=== PATIENT | female | born 1935 | race American Indian/Alaskan Native ===

== ENCOUNTER 2017-12-14 14:29 | Emergency (ER) | payer MEDICARE ==
[2017-12-14 14:44] VITALS: RESP 18; TEMP 98.7; BMI 26.6
[2017-12-14] MEDS ORDERED: Morphine 4 mg/ml ISec ONE (15:08)
[2017-12-14] MEDS ORDERED: Alum-Mag Hydrox-Simethicone Susp (30 mL) PO STA (15:27)
[2017-12-14] MEDS ORDERED: Atrop/Hyosc/Scopal/PB Elixir (120 ml) PO STA (15:27)
--- NOTE | 2017-12-14 15:33 | ED PDOC ---
Arrival/HPI - General Chief Complaint: Weakness/Neurological Deficit Time Seen by Provider: 12/14/17 14:39 Historian: Patient - History of Present Illness Narrative History of Present Illness (Text): 12/14/17 15:24 A 82 year old female, whose past medical history includes hypertension, hyperlipidemia, and breast cancer w/ mastectomy, presents to the emergency department complaining of ongoing burning sensation to mouth since yesterday at 07:00. Patient reports sensation radiates into abdomen, and fingertips and toes. Patient denies any nausea, vomiting, chest pain, suicidal/homicidal ideation, auditory/visual hallucinations, or any other complaints at this time. PMD: Dr. Benítez Time/Duration: 24 hours (since 07:00 yesterday) Symptom Onset: Sudden Symptom Course: Unchanged Past Medical History - Provider Review Nursing Documentation Reviewed: Yes - Infectious Disease Hx of Infectious Diseases: None - Cardiac Hx Cardiac Disorders: Yes Hx Hypertension: Yes - Pulmonary Hx Respiratory Disorders: No - Neurological Hx Neurological Disorder: No - HEENT Hx HEENT Disorder: Yes Other/Comment: wears reading glasses,glasses at home. - Renal Hx Renal Disorder: No - Endocrine/Metabolic Hx Endocrine Disorders: Yes Hx Diabetes Mellitus Type 2: Yes - Hematological/Oncological Hx Blood Disorders: Yes Hx Anemia: Yes - Integumentary Hx Dermatological Disorder: No - Musculoskeletal/Rheumatological Hx Musculoskeletal Disorders: Yes Hx Arthritis: Yes - Gastrointestinal Hx Gastrointestinal Disorders: Yes Hx Gastroesophageal Reflux: Yes - Genitourinary/Gynecological Hx Genitourinary Disorders: No - Psychiatric Hx Psychophysiologic Disorder: Yes Hx Anxiety: Yes Hx Depression: Yes Hx Substance Use: No - Surgical History Hx Breast Biopsy: Yes Hx Cardiac Catheterization: Yes Hx Mastectomy: Yes (L PARTIAL AND RIGHT COMPLETE MASTECTOMY) Hx Orthopedic Surgery: Yes (Back surgery) Other/Comment: R arm/shoulder surgery - Anesthesia Hx Anesthesia: Yes Hx Anesthesia Reactions: No Hx Malignant Hyperthermia: No - Suicidal Assessment Feels Threatened In Home Enviroment: No Family/Social History - Physician Review Nursing Documentation Reviewed: Yes Family/Social History: No Known Family HX Smoking Status: Former Smoker Hx Alcohol Use: No Hx Substance Use: No Allergies/Home Meds Allergies/Adverse Reactions: Allergies asparagus Allergy (Verified 04/19/16 12:16) RASH atorvastatin Allergy (Verified 04/19/16 12:16) unknown Home Medications: Home Meds Medication Instructions Recorded Confirmed Diovan 80 mg PO DAILY 10/24/13 06/17/16 Xanax 0.5 mg PO BID PRN 10/24/13 08/26/15 Aspirin [Ecotrin] 81 mg PO DAILY 08/22/15 06/17/16 Bisoprolol [Zebeta] 5 mg PO DAILY 08/22/15 06/17/16 Rosuvastatin Calcium [Crestor] 10 mg PO HS 08/26/15 06/17/16 Esomeprazole Magnesium [Nexium] 40 mg PO DAILY 06/17/16 06/17/16 Levocetirizine Dihydrochloride 5 mg PO DAILY 06/17/16 06/17/16 [Xyzal] Meloxicam [Mobic] 15 mg PO DAILY 06/17/16 06/17/16 Metformin HCl [Glucophage] 500 mg PO DAILY 06/17/16 06/17/16 amLODIPine [Norvasc] 5 mg PO DAILY 06/17/16 06/17/16 traZODone [Desyrel] 100 mg PO HS 06/17/16 06/17/16 Review of Systems - Physician Review All systems were reviewed & negative as marked: Yes - Review of Systems Constitutional: absent: Fevers, Night Sweats Respiratory: absent: SOB, Cough Cardiovascular: absent: Chest Pain Gastrointestinal: absent: Nausea, Vomiting Psychiatric: absent: Suicidal Ideation (and no homicidal ideation), Other (no auditory/visual hallucinations) Physical Exam Vital Signs Reviewed: Yes Vital Signs Temp Pulse Resp BP Pulse Ox 12/14/17 18:50 98.7 F 59 L 18 170/69 H 96 12/14/17 17:53 54 L 199/85 H 12/14/17 17:44 98.7 F 59 L 18 170/69 H 96 12/14/17 14:43 98.7 F 61 18 186/86 H 95 Temperature: Afebrile Blood Pressure: Hypertensive Pulse: Regular Respiratory Rate: Normal Appearance: Positive for: Well-Appearing, Non-Toxic, Comfortable Pain Distress: None Mental Status: Positive for: Alert and Oriented X 3 - Systems Exam Head: Present: Atraumatic, Normocephalic Pupils: Present: PERRL Extroacular Muscles: Present: EOMI Conjunctiva: Present: Normal Mouth: Present: Moist Mucous Membranes Neck: Present: Normal Range of Motion Respiratory/Chest: Present: Clear to Auscultation, Good Air Exchange. No: Respiratory Distress, Accessory Muscle Use Cardiovascular: Present: Regular Rate and Rhythm, Normal S1, S2. No: Murmurs Abdomen: No: Tenderness, Distention, Peritoneal Signs Back: Present: Normal Inspection Upper Extremity: Present: Normal Inspection. No: Cyanosis, Edema Lower Extremity: Present: Normal Inspection. No: Edema Neurological: Present: GCS=15, CN II-XII Intact, Speech Normal Skin: Present: Warm, Dry, Normal Color. No: Rashes Psychiatric: Present: Alert, Oriented x 3, Normal Insight, Normal Concentration Medical Decision Making ED Course and Treatment: 12/14/17 15:28 Impression: 82 year old female with burning sensation to mouth radiating to abdomen and into fingertips and toes. No acute findings to physical examination. Differential Diagnosis included but are not limited to: Anxiety; Gastritis Plan: -- EKG -- Labs -- Maalox Plus 30 ml -- Elixir -- Pepcid -- Lidocaine 2% Viscous -- Reassess and disposition Prior Visits: Notes and results from previous visits were reviewed. Patient was last seen in the emergency department on 09/19/2017 for Xanax refill. Patient was shown to have had an extensive Xanax and Percocet record with Dr. Benítez and 3 other providers. Patient was discharge home. Progress Notes: 12/14/17 16:23 Sinus archana at 55bpm with premature superventricular complexes, with LVH, Q waves inf leads, no change from 09/19/17 Patient's blood pressure improved after clonidine. She will make sure to take her medications at home. Patient's labs reviewed and normal. Patient felt much better after medications. She will follow up with her primary care doctor. She was advised to return to the ED if symptoms worsen or any other concern. - Lab Interpretations Lab Results: 12/14/17 17:17 12/14/17 16:45 Lab Results 12/14/17 17:17: WBC 7.8, RBC 3.89, Hgb 10.8 L, Hct 32.7 L, MCV 84.1, MCH 27.8, MCHC 33.0, RDW 14.2, Plt Count 263, MPV 9.7, Gran % 56.6, Lymph % (Auto) 32.0, Kemper % (Auto) 8.1 H, Eos % (Auto) 3.2, Baso % (Auto) 0.1, Gran # 4.42, Lymph # ( Auto) 2.5, Kemper # (Auto) 0.6, Eos # (Auto) 0.3, Baso # (Auto) 0.01 12/14/17 16:45: Sodium 144, Potassium 3.6, Chloride 107, Carbon Dioxide 28, Anion Gap 13, BUN 10, Creatinine 0.5 L, Est GFR ( Amer) > 60, Est GFR ( Non-Af Amer) > 60, Random Glucose 116 H, Calcium 9.2, Magnesium 1.9, Total Bilirubin 0.8, AST 19, ALT 19, Alkaline Phosphatase 54, Total Protein 7.1, Albumin 4.0, Globulin 3.0, Albumin/Globulin Ratio 1.3 I have reviewed the lab results: Yes - Medication Orders Current Medication Orders: Discontinued Medications Al Hydrox/Mg Hydrox/Simethicone (Maalox Plus 30 Ml) 30 ml PO STAT STA Stop: 12/14/17 15:28 Last Admin: 12/14/17 16:26 Dose: 30 ml Belladonna/Phenobarbital ( Elixir) 10 ml PO STAT STA Stop: 12/14/17 15:28 Last Admin: 12/14/17 16:24 Dose: 10 ml Clonidine HCl (Catapres) 0.2 mg PO STAT STA Stop: 12/14/17 17:42 Last Admin: 12/14/17 17:53 Dose: 0.2 mg MAR Pulse and Blood Pressure Document 12/14/17 17:53 OCS (Rec: 12/14/17 17:53 OCS [id number]) Pulse Pulse Rate (60-90) 54 Blood Pressure Blood Pressure (100/60-150/90) 199/85 Famotidine (Pepcid) 20 mg IVP STAT STA Stop: 12/14/17 15:28 Last Admin: 12/14/17 16:40 Dose: IVP Administration Document 12/14/17 16:40 OCS (Rec: 12/14/17 16:40 OCS [id number]) Charges for Administration # of IVP Administrations 1 Famotidine (Pepcid) 20 mg PO STAT STA Stop: 12/14/17 16:40 Last Admin: 12/14/17 17:28 Dose: 20 mg Lidocaine HCl (Lidocaine 2% Viscous) 10 ml MM STAT STA Stop: 12/14/17 15:28 Last Admin: 12/14/17 16:26 Dose: 10 ml - Scribe Statement The provider has reviewed the documentation as recorded by the Vaishali Epstein Provider Scribe Attestation: All medical record entries made by the Scribe were at my direction and personally dictated by me. I have reviewed the chart and agree that the record accurately reflects my personal performance of the history, physical exam, medical decision making, and the department course for this patient. I have also personally directed, reviewed, and agree with the discharge instructions and disposition. Disposition/Present on Arrival - Present on Arrival Any Indicators Present on Arrival: Yes History of DVT/PE: No History of Uncontrolled Diabetes: Yes Urinary Catheter: No History of Decub. Ulcer: No History Surgical Site Infection Following: None - Disposition Have Diagnosis and Disposition been Completed?: Yes Diagnosis: Medication reaction, Hypertension Disposition: HOME/ ROUTINE Disposition Time: 18:50 Patient Plan: Discharge Condition: IMPROVED Discharge Instructions (ExitCare): High Blood Pressure in Adults, Adverse Drug Reactions, Adult Additional Instructions: COLLEEN WARNER, thank you for letting us take care of you today. Your provider was Arnie Hamilton DO and you were treated for Medication Reaction, Hypertension. The emergency medical care you received today was directed at your acute symptoms. If you were prescribed any medication, please fill it and take as directed. It may take several days for your symptoms to resolve. Return to the Emergency Department if your symptoms worsen, do not improve, or if you have any other problems. Please contact your doctor or call one of the physicians/clinics you have been referred to that are listed on the Patient Visit Information form that is included in your discharge packet. Bring any paperwork you were given at discharge with you along with any medications you are taking to your follow up visit. Our treatment cannot replace ongoing medical care by a primary care provider outside of the emergency department. Thank you for allowing the [facility] team to be part of your care today. If you had an X-Ray or CT scan: A Radiologist will review the ED reading if any change in treatment is needed we will contact you. If you had a blood, urine, or wound culture: It will take several days for the results, if any change in treatment is needed we will contact you. If you had an STI test: It will take 48 hours for the results. Please call after 1 week if you have not heard back. Referrals: [facility], [Non-Staff] - Follow up with primary Forms: PICS Auditing (Portuguese), WORK NOTE
[2017-12-14 17:09] LABS: ALB/GLOB RATIO 1.3 (1.1-1.8); ALT/SGPT 19 U/L (7-56); AST/SGOT 19 U/L (14-36); BLOOD UREA NITROGEN 10 mg/dL (7-21); CALCIUM 9.2 mg/dL (8.4-10.5); GFR AFRICAN-AMERICAN > 60; GFR NON-AFRICAN AMERICAN > 60
[2017-12-14 17:30] LABS: BASO # 0.01 K/mm3 (0.0-2.0); BASO % 0.1 % (0.0-3.0); EOS # 0.3 (0.0-0.7); EOS % 3.2 % (1.5-5.0); GRAN # 4.42 (1.4-6.5); GRAN % 56.6 % (50.0-68.0); HEMOGLOBIN 10.8 g/dL (12.0-16.0); LYMPH # 2.5 (1.2-3.4); MEAN CELL VOLUME 84.1 fl (80.0-105.0); MEAN CORPUSCULAR HEMOGLOBIN 27.8 pg (25.0-35.0); MEAN PLATELET VOLUME 9.7 fl (7.0-11.0); MONO # 0.6 (0.1-0.6); MONO % 8.1 % (1.0-6.0); RBC 3.89 10^6/uL (3.5-6.1); RED CELL DISTRIBUTION WIDTH 14.2 % (11.5-14.5); WHITE BLOOD COUNT 7.8 10^3/ul (4.5-11.0)
--- NOTE | 2017-12-14 18:18 | CARD ---
APPROVED REPORT EKG Measurement Heart [id number] <Conclusion> Marked sinus bradycardia with premature supraventricular complexes Minimal voltage criteria for LVH, may be normal variant Inferior infarct, age undetermined Abnormal ECG
[2017-12-14 18:51] VITALS: BP 170/69; PULSE 59; O2SAT 96
== END 2017-12-14 17:44 | disposition home or self-care (01) ==
LOC: ED 14:29
DX: R20.8 Other disturbances of skin sensation (principal); T50.905A Adverse effect of unspecified drugs, medicaments and biological substances, initial encounter; I10 Essential (primary) hypertension; E11.9 Type 2 diabetes mellitus without complications; E78.5 Hyperlipidemia, unspecified; Z87.891 Personal history of nicotine dependence